=== PATIENT | male | born 1940 | race Caucasian/White ===

== ENCOUNTER 2020-11-06 13:05 | Emergency (ER) | payer MEDICARE, OTHER ==
[~2020-11-06] VITALS: Ht 172.7 cm; Wt 48.5 kg
--- NOTE | 2020-11-06 13:38 | NUR ---
Dr Toro seen and examoned the pt and spoke to family.
--- NOTE | 2020-11-06 13:45 | NUR ---
COVID antigen test collected and sent to LAB.
[2020-11-06 13:53] LABS: HEMATOCRIT 38.9 % (36.7-47.1); MEAN CORPUSCULAR HEMOGLOBIN 29.6 uug (23.8-33.4); MEAN CORPUSCULAR VOLUME 85.8 fL (73.0-96.2); PLATELET COUNT (AUTO) 286 K/uL (152-348)
[2020-11-06] MEDS ORDERED: DIVA125T2 PO (13:56)
[2020-11-06] MEDS ORDERED: QUET25TA PO (13:56)
[2020-11-06 14:00] LABS: POTASSIUM 4.9 mmol/L (3.5-5.1)
[2020-11-06 14:07] LABS: BILIRUBIN,DIRECT 0.2 mg/dL (0.0-0.2); BILIRUBIN,TOTAL 0.7 mg/dL (0.2-1.0); TOTAL PROTEIN, SERUM 7.4 g/dL (6.4-8.2)
--- NOTE | 2020-11-06 15:08 | NUR ---
Patient discharged to home in stable condition. Written and verbal after care instructions given, Patient's daughter verbalizes understanding of instructions. Stressed follow up or return to ER for worsening s/s. Pt left ER accompained by family via wheelchair.
[2020-11-06 15:09] VITALS: BP 128/61
== END 2020-11-06 15:19 | disposition home or self-care (01) ==
LOC: EDSEX 13:05 → ER 13:05
DX: R53.1 Weakness (principal); R00.1 Bradycardia, unspecified; Z20.822 Contact with and (suspected) exposure to COVID-19; I44.0 Atrioventricular block, first degree; F03.90 Unspecified dementia, unspecified severity, without behavioral disturbance, psychotic disturbance, mood disturbance, and anxiety; E87.1 Hypo-osmolality and hyponatremia; R91.8 Other nonspecific abnormal finding of lung field
CPT/HCPCS: 36415; 70030-TC; 71045; 83690; 85025; 93005; A4663